=== PATIENT | male | born 1990 | race African-American/Black ===

== ENCOUNTER 2018-12-18 13:31 | Emergency (ER) | payer OTHER ==
[~2018-12-18] VITALS: Ht 170.2 cm; Wt 68.0 kg
[2018-12-18 13:40] VITALS: BP 141/78
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
[2018-12-18] MEDS: Lidocaine 1% Plain 30 ml INJ ONE ×2 (13:45→13:51)
[2018-12-18] MEDS ORDERED: ceFAZolin 1gm/50ml Premix 50 ML IV ONE (13:45)
[2018-12-18] MEDS ORDERED: fentaNYL 100 mcg/2 mL IV ONE ×3 (13:45→16:30)
[2018-12-18] MEDS ORDERED: VENTOLIN HFA18 GM INH (13:49)
[2018-12-18 14:22] LABS: BASOPHILS % (AUTO) 0.9 % (0.0-2.0); EOSINOPHILS % (AUTO) 0.4 % (0.0-3.0); HEMOGLOBIN 17.4 G/DL (14.2-18.0); MEAN CORPUSCULAR VOLUME 97 FL (80-99); MONOCYTES % (AUTO) 6.5 % (1.0-10.0); NEUTROPHILS % (AUTO) 64.2 % (45.0-75.0); PLATELET COUNT 192 K/UL (150-450); RED BLOOD COUNT 5.25 M/UL (4.70-6.10); RED CELL DISTRIBUTION WIDTH 11.7 % (11.6-14.8); WHITE BLOOD COUNT 15.7 K/UL (4.8-10.8)
[2018-12-18 14:25] LABS: ANION GAP 14 mmol/L (5-15); BLOOD UREA NITROGEN 8 mg/dL (7-18); CALCIUM 9.8 MG/DL (8.5-10.1); CARBON DIOXIDE 25 MMOL/L (21-32); CHLORIDE 103 MMOL/L (98-107); CREATININE 1.2 MG/DL (0.55-1.30); POTASSIUM 3.9 MMOL/L (3.5-5.1); SODIUM 142 MMOL/L (136-145)
[2018-12-18 14:38] LABS: ALANINE AMINOTRANSFERASE 93 U/L (12-78); ALBUMIN 4.7 G/DL (3.4-5.0); ALBUMIN/GLOBULIN RATIO 1.3 (1.0-2.7); ALKALINE PHOSPHATASE 57 U/L (46-116); ASPARTATE AMINO TRANSFERASE 87 U/L (15-37); BILIRUBIN,TOTAL 1.3 MG/DL (0.2-1.0)
[2018-12-18 14:40] VITALS: BP 121/70
[2018-12-18 14:42] LABS: BILIRUBIN,DIRECT 0.2 MG/DL (0.0-0.3)
[2018-12-18 14:58] LABS: APPEARANCE,URINE CLEAR; BILIRUBIN, URINE NEGATIVE (NEGATIVE); COLOR,URINE PALE YELLOW; GLUCOSE, URINE (UA) NEGATIVE (NEGATIVE); KETONES,URINE 1+ (NEGATIVE); LEUKOCYTE ESTERASE ,URINE NEGATIVE (NEGATIVE); NITRITE,URINE NEGATIVE (NEGATIVE); PH,URINE 7 (4.5-8.0); PROTEIN,URINE NEGATIVE (NEGATIVE); UROBILINOGEN,URINE NORMAL MG/DL (0.0-1.0)
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
[2018-12-18 15:40] VITALS: BP 153/57
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
--- NOTE | 2018-12-18 16:15 | NUR ---
ED Nurse Note: Pt stable in bed.
--- NOTE | 2018-12-18 16:22 | NUR ---
ED Nurse Note: Reported pain level on Lt anterior knee 05/03. MD made aware.
--- NOTE | 2018-12-18 16:23 | NUR ---
CONTACTED HARLEY FROM RADIOLOGY FOR DISC COPY OF RADIOLOGY RESULT
[2018-12-18 16:40] VITALS: BP 124/78
--- NOTE | 2018-12-18 16:41 | NUR ---
ED Nurse Note: Attempted to give report to the nurse at [facility]. per Buck, bed is not ready and they will not take the report at this moment. Will attempt at 1700 again.
--- NOTE | 2018-12-18 17:18 | NUR ---
ED Nurse Note: Report given to TISHA Wang. Pt is aware of transfer and signed on consent.
--- NOTE | 2018-12-18 17:27 | NUR ---
ED Nurse Note: C/o back of chest pain 07/03. made aware.
[2018-12-18] MEDS ORDERED: Morphine Sulfate 4mg/ml Inj (IV USE ONLY) IVP ONE (17:45)
[2018-12-18 18:02] VITALS: BP 128/73
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
[2018-12-18 18:14] VITALS: BP 127/54
== END 2018-12-18 18:16 | disposition short-term general hospital (02) ==
LOC: EMR 14:10
DX: S22.22XA Fracture of body of sternum, initial encounter for closed fracture (principal); S22.31XA Fracture of one rib, right side, initial encounter for closed fracture; S06.9X1A Unspecified intracranial injury with loss of consciousness of 30 minutes or less, initial encounter; S82.092B Other fracture of left patella, initial encounter for open fracture type I or II; S81.012A Laceration without foreign body, left knee, initial encounter; R00.0 Tachycardia, unspecified; V43.02XA Car driver injured in collision with other type car in nontraffic accident, initial encounter; Y92.414 Local residential or business street as the place of occurrence of the external cause
CPT/HCPCS: 36415; 70450; 71250; 72125; 73700; 80053; 81001; 82248; 85025; 85610; 85730; 86850; 86900; 86901; 87086; 96365; 96375; 96376; 99291; J0690; J2001; J2270; J2405; J3010

== ENCOUNTER 2019-05-04 20:20 | Emergency (ER) | payer OTHER ==
[~2019-05-04] VITALS: Ht 172.7 cm; Wt 72.6 kg
[~2019-05-04 20:20] MED LIST: VENTOLIN HFA18 GM INH
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
[2019-05-04 20:38] VITALS: BP 120/72
--- NOTE | 2019-05-04 20:40 | NUR ---
ED Nurse Note: X ray at bedside.
[2019-05-04] MEDS ORDERED: IBUPROFEN600 MG ORAL (21:02)
[2019-05-04 21:12] VITALS: BP 120/72
--- NOTE | 2019-05-04 21:14 | NUR ---
ER DISCHARGE NOTE: Patient is cleared to be discharged per ERMD, pt is aox4, on room air, with stable vital signs. pt was given dc and prescription instructions, pt was able to verbalize understanding, pt id band removed without complications. pt is able to ambulate with steady gait with friend. pt took all belongings.
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
== END 2019-05-04 22:00 | disposition home or self-care (01) ==
LOC: EMR 21:34
DX: S62.307A Unspecified fracture of fifth metacarpal bone, left hand, initial encounter for closed fracture (principal); S62.306A Unspecified fracture of fifth metacarpal bone, right hand, initial encounter for closed fracture; W22.8XXA Striking against or struck by other objects, initial encounter; Y92.9 Unspecified place or not applicable
CPT/HCPCS: 29125; 99284